=== PATIENT | female | born 1980 | race Caucasian/White ===

== ENCOUNTER 2018-04-15 21:45 | Emergency (ER) | payer OTHER ==
[~2018-04-15] VITALS: Ht 162.6 cm; Wt 58.6 kg
[2018-04-15] MEDS ORDERED: MOTRIN800 MG PO (22:39)
[2018-04-15] MEDS ORDERED: NORCO 7.5/321 TABLET PO (22:39)
[2018-04-15 23:27] VITALS: BP 120/71
== END 2018-04-15 23:28 | disposition home or self-care (01) ==
LOC: EME 21:45
DX: S92.424A Nondisplaced fracture of distal phalanx of right great toe, initial encounter for closed fracture (principal); W22.8XXA Striking against or struck by other objects, initial encounter
CPT/HCPCS: 73630; 99281; 99284